=== PATIENT | female | born 2000 | race Two or more races ===

== ENCOUNTER 2024-06-10 00:28 | Inpatient (IN) | payer MEDICAID, SELFPAY ==
[2024-06-10] VITALS (30 sets, daily range): BP systolic 95–146; BP diastolic 60–98; PULSE 81–116; RESP 15–100; TEMP 36.7–37.1; O2SAT 98–100; BMI 32.8
--- NOTE | 2024-06-10 01:00 | PD.LDHP ---
Documentation for date of: 06/10/24 OB Labor/Induct. HPI History of Present Illness Chief complaint: 23 y/o 40w 0d presents to L&D in labor with SROM at 4 cm : 3 Para: 2 Term pregnancies: 2 pregnancies: 0 Living children: 2 History of Abortions: Spontaneous and Elective: 0 History of Vaginal deliveries: 2 History of sections: No History of : No CASA: 06/10/24 Gestational Age (weeks): 40 Gestational Age (days): 0 History of present illness: 23 y/o 40w 0d presents to L&D in labor with SROM at 4 cm/80/-2 vertex. has been uncomplicated. EFW 3100g History of Present Dating criteria: based on 1st trimester US only Adequate Care: Yes Ultrasounds: normal 1st trimester US and normal mid trimester US Obstetrical complications: none Medical complications: none Labs Maternal Blood Type: O Pos Labs: Negative: RPR, Hepatitis B, Rubella Titre, HIV, Chlamydia, Gonorrhea and Group Beta Strep and Unknown: Herpes Type 1, Herpes Type 2 and Covid-19 Review of Systems Review of Systems Systems Reviewed: All systems reviewed, normal except as documented Past Medical History Surgical History SURGICAL: Negative Section Meds Home Medications and Allergies Home Medications ?Medication ?Instructions ?Recorded ?Confirmed ?Type vit no.95-ferrous 1 tab PO QDAY 06/10/24 06/10/24 History fumarate 28 mg-folic acid 800 mcg tablet () Allergies Allergy/AdvReac Type Severity Reaction Status Date / Time No Known Allergies Allergy Verified 06/10/24 00:52 OB Exam Physical Exam Vital signs: Pulse Resp BP 110 H 18 120/69 06/10/24 02:06 06/10/24 00:54 06/10/24 02:06 Constitutional Constitutional: moderate distress (Secondary to painful contractions) Routine HEENT Exam Head: Present normocephalic and atraumatic Eye: Present EOMI, PERRL and normal accommodation ENT: Present mucous membranes moist Routine Neck Exam Neck: Present full ROM Routine Respiratory Exam Respiratory: Absent respiratory distress Routine Cardiovascular Exam Cardiovascular: Present RRR Routine Abdominal Exam Abdominal: Present soft Comments: Gravid Uterus EFW 3100g Routine Exam External: Present normal urethra appearance; Absent lesions Detailed Labor and Delivery Exam Dilation (cm): 4 Effacement (%): 80 Cervix position: posterior station: -2 Consistency: soft Presentation: Vertex Membranes: ruptured Amniotic fluid: clear Baseline heart rate: 130 monitor accelerations: 15x15 monitor decelerations: None crime scene examiner variability: Moderate (11-25) Contraction frequency (min): 2-3 Routine Extremities Exam Extremities: Present full ROM Routine Back/Spine/Pelvis Exam Back/Spine: Present full ROM Routine Skin Exam Skin: Present intact, dry and warm Routine Neurological Exam Neurological: Present alert, oriented X3 and CN II-XII intact Routine Psychiatric Exam Psychiatric: Present normal affect and normal thought process OB Results Labs 06/10/24 00:50 Labs: Short CBC 06/10/24 Range/Units 00:50 WBC 13.0 H (3.6-11.0) Thou/mm3 Hgb 11.3 L (12.0-16.0) g/dL Hct 32.4 L (36.0-46.0) % Plt Count 274 (140-440) Thou/mm3 OB Assessment & Plan Assessment and Plan (1) Normal labor: Status: Acute (2) Anemia affecting in third trimester: Status: Acute (3) Rubella non-immune status, antepartum: Status: Acute Additional Plan Induction method: none Plan: anticipate NVD and consult prnena Additional Plan Comment: Routine admit orders Continuous EFM
[2024-06-10] MEDS: RINGERS LACTATED 1000 ML 1,000 ML 125 ML IV (01:13)
[2024-06-10] MEDS: fentaNYL CIT INJ 50 mCg/ML AMP 2ML 100 MCG IV (01:26)
[2024-06-10 01:30] LABS: Basophils # (Auto) 0.1 Thou/mm3 (0.0-0.2); Basophils % (Auto) 0 % (0-2.5); Eosinophils # (Auto) 0.1 Thou/mm3 (0.0-0.5); Eosinophils % (Auto) 1 % (0-10); Hematocrit 32.4 % (36.0-46.0); Hemoglobin 11.3 g/dL (12.0-16.0); Immature Granulocytes % (Auto) 0 % (0-0); Immature Granulocytes Auto 0.04 Thou/mm3 (0.00-0.00); Lymphocytes # (Auto) 2.4 Thou/mm3 (1.0-4.8); Lymphocytes % (Auto) 18 % (10-50); Mean Corpuscular HGB Conc 34.9 g/dl (31.0-37.0); Mean Corpuscular Hemoglobin 28.8 pg (25.0-35.0); Mean Corpuscular Volume 83 fL (80-100); Monocytes # (Auto) 0.7 Thou/mm3 (0.0-0.8); Monocytes % (Auto) 5 % (0-12); Neutrophils # (Auto) 9.7 Thou/mm3 (1.8-7.7); Neutrophils % (Auto) 75 % (37-80); Nucleated Red Blood Cell % 0 /100 WBC (0); Platelet Count 274 Thou/mm3 (140-440); RDW Standard Deviation 38.9 fL (36.4-46.3); Red Blood Count 3.92 Miln/mm3 (4.00-5.20)
[2024-06-10] MEDS: MINERAL OIL 30 ML UDC TOP (02:01)
[2024-06-10] MEDS: OXYTOCIN in NS 20 units 20 UNIT/1,000 ML BAG 125 UNIT IV (02:08)
[2024-06-10] MEDS: BENZO/LANO/ALOE (Dermoplast) 60 GM CAN 1 SPRAY TOP (02:12)
--- NOTE | 2024-06-10 02:27 | OBDSUM_ITS ---
Data ([facility]) Data Hx Section: No Maternal Blood Type: O Pos Rubella Titre: Negative RPR: Non-reactive Labs: Negative: RPR, Hepatitis B, HIV, Chlamydia, Gonorrhea and Group Beta Strep and Unknown: Herpes Type 1 and Herpes Type 2 : 3 Para: 2 Term: 2 : 0 Livin : 0 Delivery Data ([facility]) Labor Data Stimulated/Augmented: No Induction: No ROM Date: 06/10/24 ROM Time: 00:00 Rupture Type: SROM Amniotic Fluid: Clear Delivery Data EDC: 06/10/24 EDC calculated by:: ultrasound Labor Onset Stage 1 Date: 06/09/24 Labor Onset Stage 1 Time: 21:00 Labor Onset Stage 2 Date: 06/10/24 Labor Onset Stage 2 Time: 01:53 Delivery Date: 06/10/24 Delivery Time: 02:05 Gestational age (weeks): 40 Gestational age (days): 0 Placenta Delivery Date: 06/10/24 Placenta Delivery Time: 02:07 Delivered by: Es Moon Delivery nurse: Raina Johnson Physician General Practice at delivery: No Support person(s) at delivery: FOB Other staff at delivery: Nurse Other staff at delivery: RT Other staff at delivery: Stacia Benjamin Delivery Method Delivery: Vaginal Delivery Type: Spontaneous Presentation: Vertex Position: OA Anesthesia Type Primary Anesthesia: None Delivery Room Medications Other Intrapartum Medications: No Post Delivery Medications N/A: No Placenta Placenta Delivery: Spontaneous Placenta Cultures Obtained: No Placenta Sent for Examination: No Cord Sample: Cord Blood Obtained Episiotomy Episiotomy: None EBL Estimated blood loss (ml): 200 Umbilical Cord Umbilical Vessels: 3 Nuchal Cord: Not Applicable Body Cord: Not Applicable Additional Procedures Patient was admitted about an hour ago and to 4 cm and was complete late within an hour. After a few pushes patient had an of a viable male . 's anterior shoulder delivered with gentle downward traction subsequent deliver the posterior shoulder and the body without complications. Infant placed on mother's abdomen. Vigorous cry upon delivery. Cord was clamped. Cut by CNM. Cord blood obtained. Three-vessel cord noted. Placenta expelled spontaneously and intact. No lacerations noted. Perineum intact. Excellent hemostasis achieved after vigorous fundal massage and removal of clots from the posterior fornix. EBL was 200. Sponge and needle count correct. Mother and baby stable, skin to skin and bonding in LDR. Data ([facility]) [place] Data Gender: Male Weight Grams: 3140 1 Minute Total: 8 5 Minute Total: 9
[2024-06-10] MEDS: TRANEXAMIC ACID 1,000 MG IVPB 1,000 MG/100 ML BAG 200 MG IV (02:48)
[2024-06-10 03:08] LABS: Syphilis Nonreactive (Nonreactive)
[2024-06-10] MEDS: DOCUSATE SOD 100 MG CAPSULE PO (08:32)
[2024-06-10 08:50] LABS: Basophils % (Auto) 0 % (0-2.5); Eosinophils % (Auto) 0 % (0-10); Hematocrit 31.1 % (36.0-46.0); Hemoglobin 10.7 g/dL (12.0-16.0); Immature Granulocytes % (Auto) 1 % (0-0); Immature Granulocytes Auto 0.07 Thou/mm3 (0.00-0.00); Lymphocytes # (Auto) 1.4 Thou/mm3 (1.0-4.8); Lymphocytes % (Auto) 10 % (10-50); Mean Corpuscular HGB Conc 34.4 g/dl (31.0-37.0); Mean Corpuscular Hemoglobin 28.4 pg (25.0-35.0); Mean Corpuscular Volume 83 fL (80-100); Monocytes # (Auto) 0.8 Thou/mm3 (0.0-0.8); Monocytes % (Auto) 6 % (0-12); Neutrophils % (Auto) 84 % (37-80); Nucleated Red Blood Cell % 0 /100 WBC (0); Platelet Count 262 Thou/mm3 (140-440); RDW Standard Deviation 39.4 fL (36.4-46.3); Red Blood Count 3.77 Miln/mm3 (4.00-5.20); White Blood Count 14.2 Thou/mm3 (3.6-11.0)
[2024-06-10] MEDS: IBUPROFEN TAB 400 MG TABLET 800 MG PO (21:19)
[2024-06-11 05:00] VITALS: BP 118/76; PULSE 79; RESP 12; TEMP 36.4; O2SAT 98
[2024-06-11 07:30] VITALS: BP 105/69; PULSE 86; RESP 15; TEMP 36.8; O2SAT 97
--- NOTE | 2024-06-11 10:04 | ESPR_ITS ---
Subjective Subjective Interval history: Patient is a 23-year-old -0-0-2 presented at 40 weeks of and delivered by Jil. She is doing well. Resting comfortably with her son in the bed with her. The father of the baby is in the room. She denies heavy bleeding cramps fevers chills patient would like to go home today. She is breast- feeding. Exam Vital Signs Temp Pulse Resp BP Pulse Ox O2 Del Method 98.2 F 86 15 105/69 97 Room Air 06/11/24 07:30 06/11/24 07:30 06/11/24 07:30 06/11/24 07:30 06/11/24 07:30 06/11/24 07:30 Narrative Exam Patient is alert and oriented x 3 in no apparent distress. Fundus is firm 2 cm above her umbilicus nontender extremities showed no cyanosis clubbing or edema Objective Labs 06/10/24 08:00 Labs: Laboratory Results - last 24 hr 06/10/24 08:00 WBC 14.2 H RBC 3.77 L Hgb 10.7 L Hct 31.1 L MCV 83 MCH 28.4 MCHC 34.4 RDW Std Deviation 39.4 Plt Count 262 Neut % (Auto) 84 H Lymph % (Auto) 10 Wallace % (Auto) 6 Eos % (Auto) 0 Baso % (Auto) 0 Neut # (Auto) 12.0 H Lymph # (Auto) 1.4 Wallace # (Auto) 0.8 Eos # (Auto) 0.0 Baso # (Auto) 0.0 Immature Gran # (Auto) 0.07 H Absolute Nucleated RBC 0.00 Immature Gran % 1 H Nucleated RBC % 0 Assessment & Plan Problem List (1) Anemia affecting in third trimester: Problem details: Hemoglobin stable. Continue iron and vitamins at home Status: Acute (2) Rubella non-immune status, antepartum: Status: Acute Assessment and plan: MMR given (3) Term delivered: Status: Acute Assessment and plan: Patient day #1 doing well. Will discharge home in stable condition Time Spent With Patient Time: Total time spent is greater than 50% in coordination of care (as documented) at patient's floor/unit and/or counseling patient: Time with patient: less than 15 minutes
--- NOTE | 2024-06-11 10:08 | PD.LDDS ---
DS: Providers Provider Date of admission: 06/10/24 00:50 Primary care physician: Physician No Primary/Family Admitting Provider: Keely Santana MD Attending Provider on Admission: Es Moon CNM Consults: 06/10/24 03:03 Referral Routine Comment: Attending Provider on DC: Shalonda Cha MD ([facility]) Discharging Provider: Shalonda Cha MD ([facility]) Anticipated date of discharge: 06/11/24 DS: Diagnosis Discharge Diagnosis (1) Term delivered: Status: Acute Assessment & Plan: Patient is doing well day #1. No heavy bleeding or other complaints. Discharge home (2) Anemia affecting in third trimester: Status: Acute Assessment & Plan: Continue vitamins and iron as needed (3) Rubella non-immune status, antepartum: Status: Acute Assessment & Plan: MMR given Problem List Completed Was Problem List Reviewed/Reconciled?: Yes Summary/Hosp Course Brief History: 23 y/o 40w 0d presents to L&D in labor with SROM at 4 cm/80/-2 vertex. has been uncomplicated. EFW 3100g Peripartum Data Delivery Method: Normal Vaginal Delivery Episiotomy Description: None Laceration Description: yes and see Delivery Summary complications: none Status at Discharge Cognitive/behavioral status at discharge: Stable Functional status at discharge: independent ambulation Overall status at discharge: patient is progressing back to baseline Time Spent with Patient Time attestation: Total time spent providing and/or coordinating discharge services: Time spent: Less than 30 minutes Specific discharge activities: Pelvic rest x 6 weeks, no intercourse tampons douching or bathtubs for 6 weeks. Exam Vital Signs Temp Pulse Resp BP Pulse Ox O2 Del Method 98.2 F 86 15 105/69 97 Room Air 06/11/24 07:30 06/11/24 07:30 06/11/24 07:30 06/11/24 07:30 06/11/24 07:30 06/11/24 07:30 Narrative Exam Patient is alert and oriented x 3 resting comfortably in bed with father of the baby and infant at bedside. Abdomen is soft fundus is firm about 2 cm above her umbilicus extremities show no cyanosis clubbing or edema Constitutional Constitutional: no acute distress and cooperative Discharge Plan Plan Patient Disposition: HOME (Self Care) Disposition Comment: stable Patient condition on transfer: Stable Prescriptions/Referrals Prescriptions/Med Rec: New docusate sodium [Colace] 100 mg capsule 100 mg PO BID Qty: 60 0RF ibuprofen 600 mg tablet 600 mg PO Q6H PRN (Reason: pain) Qty: 90 0RF lanolin 50 % ointment 1 applic topical TID PRN (Reason: skin irritation) Qty: 15 0RF Continued PNV cmb#95-ferrous fumarate-FA [] 28 mg iron- 800 mcg tablet 1 tab PO QDAY Patient Comments: TAKE 1 TABLET BY MOUTH EVERY DAY FOR 60 DAYS Referrals: No Primary/Family,Physician [Primary Care Provider] - Patient/Caregiver Discharge Instructions Meds to Beds: No Discharge Activity: activity as tolerated Other Discharge Activity Instructions:: Follow-up with Es Moon CNM in 3 weeks Other Discharge Diet Instructions: General Education Materials: After a Vaginal , : Caring for Yourself Print Language: Icelandic Activity Restrictions/Additional Instructions: Pelvic rest x 6 weeks. No intercourse tampons douching x 6 weeks. No bathtubs or swimming x 6 weeks. Call for heavy vaginal bleeding, fevers of 101 or higher or severe depression. Stand Alone Forms: Penny Award Info., Patient Portal Info Letter Vaccines Vaccines Given During Stay: MMR Discharge Order Discharge Orders: Discharge (Routine); Ordered 06/11/24 Ordered By: Shalonda Cha ([facility]) Planned Discharge Date 06/11/24
--- NOTE | 2024-06-11 12:04 | PC.NURSE ---
1000 patient refused mmr vaccine at this time
--- NOTE | 2024-06-11 12:48 | PD.ADDPROG ---
Addendum Progress Note Addendum Date of report being addended: 06/11/24 Narrative: The patient is rubella nonimmune. She was offered an MMR vaccine by the RN and patient has declined. This should be documented on the nurses charting.
== END 2024-06-11 13:45 | disposition home or self-care (01) | DRG 560 ==
LOC: S4SX 02:35 → S4NX 04:22
PROVIDERS: Admitting Provider Student in an Organized Health Care Education/Training Program; Visit Provider Nurse Practitioner Women's Health
DX: O48.0 Post-term pregnancy (principal); O99.02 Anemia complicating childbirth; Z37.0 Single live birth; Z3A.40 40 weeks gestation of pregnancy; Z23 Encounter for immunization
CPT/HCPCS: 36415; 59409; 85025; 86780; 86850; 86900; 86901; 94762; J2590; J3010; J3490; J7120; A9270